=== PATIENT | male | born 1970 | race African-American/Black ===

== ENCOUNTER → 2017-05-30 18:13 | Outpatient (CLI) | payer OTHER, SELFPAY | PROVIDERS: Family Provider Family Medicine; PCP Family Medicine; Visit Provider Physician Assistant | DX: J02.9 Acute pharyngitis, unspecified (principal) | CPT/HCPCS: 87081 ==

== ENCOUNTER 2017-10-29 20:04 | Emergency (ER) | payer OTHER, SELFPAY ==
[2017-10-29 20:05] VITALS: BP 157/88; PULSE 104; RESP 18; TEMP 38.7; O2SAT 94; BMI 30.5
[2017-10-29 20:20] VITALS: TEMP 38.6
[2017-10-29 20:58] VITALS: O2SAT 100
[2017-10-29] MEDS: Acetaminophen 500 MG Tablet 1000 MG PO (21:12)
[2017-10-29] MEDS: 0.9% Normal Saline 1,000 ML 150 ML IV (21:15)
[2017-10-29 21:16] VITALS: O2SAT 98
[2017-10-29 21:43] LABS: Lactic Acid 1.1 mmol/L (0.4-2.0)
[2017-10-29 21:53] LABS: Anion Gap 6 (5-15); BUN 15 mg/dL (7-18); BUN/Creat Ratio 12.7 RATIO (10-20); Calcium,Total 9.5 mg/dL (8.5-10.1); Chloride 102 mmol/L (98-107); Creatinine, Serum 1.18 mg/dL (0.70-1.30); EST Glomerular Filtration Rate 70 mL/min (>60); Est Glom Filt Rate - Afr Amer 85 mL/min (>60); Estimated Creatinine Clearance 84.94 ml/min; Glucose 81 mg/dL (74-106); Hematocrit 35.8 % (40-54); Potassium 3.3 mmol/L (3.5-5.1); Sodium Level 137 mmol/L (136-145); White Blood Count 8.7 K/mm3 (4.4-11.0)
[2017-10-29 21:54] LABS: Absolute Lymphocyte Count 0.97 X10^3/ul (0.83-4.51); Absolute Neutrophil Count 6.6 X10^3/uL (2.0-7.7); Basophil# 0.03 X10^3/uL; Basophil% 0.3 % (0-1); Eosinophil# 0.32 X10^3/uL; Eosinophils% 3.7 % (0-5); Lymphocyte # 0.97 X10^3/ul (4.0); Lymphocyte % 11.2 % (19-41); Mean Corp Hgb Conc 33.5 g/gl (32-36); Mean Corpuscular Volume 89.5 fL (80-94); Mean Platelet Vol. 9.7 fl (6.2-12.0); Monocyte# 0.76 X10^3/uL; Monocyte% 8.8 % (0-10); Neutrophil # 6.57 X10^3/uL (2.7-7.7); Neutrophil % 75.8 % (47-70); Platelet Count 423 K/mm3 (150-450); RBC Distribution Width CV 11.8 % (11.6-14.6); RBC Distribution Width SD 37.6 fl (35.1-43.9)
[2017-10-29 21:55] LABS: POSITIVE COUNT NO; POSITIVE DIFFERENTIAL NO; POSITIVE MORPHOLOGY NO
[2017-10-29 22:56] VITALS: BP 166/96; PULSE 95; RESP 16; TEMP 37.2; O2SAT 91
--- NOTE | 2017-10-29 23:45 | ED.VISSUMM ---
- ER Visit Summary Date of Service: 10/29/17 Chief Complaint: Body aches, fever History of Present Illness: The patient is a 47 M with generalized body aches and fever today. He is 3 weeks postop from a vasectomy performed by Dr. Nixon. Patient has been complaining of scrotal pain and swelling, now worse than the left. He had urinalysis done at urgent care that showed signs of possible dehydration but no sign of infection. Physical Examination: Blood pressure 157/88, temperature 101.4, heart rate 104, respiratory rate 18, pulse ox 94% on room air. Head neck examination unremarkable. Heart is regular rate and rhythm. Lung sounds are clear. Abdomen is soft and nontender. examination reveals right scrotal fullness. Right testicle is nontender. No overlying skin changes. He does have mild left testicular tenderness. There is less swelling on the left. No overlying skin changes. Test Results: CBC was normal white count with hemoglobin is 12.0. Chemistry studies significant only for potassium of 3.3. Lactate normal. Testicular ultrasound shows no torsion. There is mild increased vascularity of the epididymis bilaterally. There is a large right-sided hydrocele. 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 Emergency Department Course and Treatment: Patient was given Tylenol and IV fluids. Fever is improved. I spoke with Dr. Nixon and he asked that the patient be treated with a course of Keflex. First doses given here. Treatment Plan: [] Disposition: Discharge Impression: Postop fever This note was generated with [employer] dictation software. It may contain incorrect words, spelling, and punctuation that were not noted in review of the chart prior to signing ED Disposition - Plan for ED Patient: Disposition: Home or Assisted Living Chief Complaint: General Illness Instructions: ED Fever Unconf Cause, ED Post Op Pain Prescriptions: Cephalexin [Keflex] 500 mg PO Q6 #40 capsule Referrals: Fran Nixon MD [STAFF PHYSICIAN] - 1 Week
[2017-10-29] MEDS: Cephalexin 250 MG Capsule 500 MG PO (23:54)
[2017-10-29 23:59] VITALS: BP 152/85; PULSE 85; RESP 16; O2SAT 96
== END 2017-10-30 | disposition home or self-care (01) ==
PROVIDERS: Emergency Provider Emergency Medicine; Family Provider Family Medicine; PCP Family Medicine
DX: R50.82 Postprocedural fever (principal); N43.3 Hydrocele, unspecified; Z98.52 Vasectomy status; J45.909 Unspecified asthma, uncomplicated; E11.9 Type 2 diabetes mellitus without complications; Z79.84 Long term (current) use of oral hypoglycemic drugs
CPT/HCPCS: 76870; 80048; 83605; 85025; 87040; 93976; 94760; 96360; 96361; 99285; J7030; J7040; A4216

== ENCOUNTER → 2018-07-01 13:38 | Outpatient (CLI) | payer OTHER, SELFPAY ==
--- NOTE | 2018-07-01 13:45 | STEWCON_ITS ---
Reason For Study: Syncope Stress Results Protocol: Jresey Protocol Maximum Predicted HR: 172 bpm Target HR: 146 bpm % Maximum Predicted HR: 95 % DurationHeart Rate Stage (mm:ss) (bpm) BP Comment Baseline 60 114/86No Chest Pain; 0.4 ML Definity Given [place] Protocol Stage I 3:00 109 136/80No Chest Pain [place] Protocol Stage II 3:00 120 138/84No Chest Pain [place] Protocol Stage III 3:00 142 146/80No Chest Pain [place] Protocol Stage IV 2:00 164 / No Chest Pain; Mild to Moderate Dyspnea Recovery 80 128/80No Chest Pain Stress Duration: 11:00 mm:ss Maximum Stress HR: 164 bpm METS: 13 Baseline Echocardiogram Findings Stress Echo Wall motion Data Resting WM Intermediate WM Stress WM Resting Wall Motion Wall Motion Stress No regional wall motion No regional wall motion abnormalities noted. abnormalities noted. Ejection Fraction 55 %. Ejection Fraction 65 %. Interpretation Summary Exercise stress echo with and without definitive. Stress protocol: Resting EKG demonstrates sinus bradycardia with a rate of 56 bpm normal intervals are noted resting blood pressure 114/86 mmHg. The patient exercised according to regular Jersey protocol for total duration of 11 minutes completing 2 minutes into stage IV of the Jersey protocol. The maximum heart rate attained was 176 bpm which was 102% of maximum predicted heart rate the maximum workload was 13.4 metabolic equivalents. At rest there were no ST or T wave changes noted suggest ischemia peak exercise upsloping ST changes only were noted with no meet the criteria for ischemia. No clinical angina was noted. The resting blood pressure 114/86 with a peak blood pressure of 194/90 mmHg. No clinical angina was noted. Stress echocardiographic images. The resting echocardiographic images were performed with Definity which demonstrated an ejection fraction of approximately 55%. The stress echocardiographic images were also performed with Definity it demonstrated reduction in left ventricular cavity size with peaking of ejection fraction of 65% no wall motion abnormalities were noted. Conclusion: Normal exercise stress echo with and without definity at a high workload. Ordering Physician: Diego Kruger Referring Physician: Geovanny Linn Performed By: Lindsay Salazar, DAYANA, RVT
== END ==
PROVIDERS: Family Provider Family Medicine; PCP Family Medicine; Referring Provider Nurse Practitioner Family
DX: R42 Dizziness and giddiness (principal); R55 Syncope and collapse
CPT/HCPCS: 93017; 93350; Q9957; A4216; C8928

== ENCOUNTER 2020-09-28 08:16 | Day surgery (SDC) | payer OTHER, SELFPAY ==
[2020-09-02 14:03] VITALS: BMI 30.5
[2020-09-28] VITALS (7 sets, daily range): BP systolic 120–157; BP diastolic 77–96; PULSE 66–86; RESP 14–20; TEMP 19.4–36.2; O2SAT 85–100; BMI 28.0
[2020-09-28] MEDS: Lactated Ringers 1,000 ML 100 ML IV (08:25)
--- NOTE | 2020-09-28 09:20 | PCM.HP.BLA ---
History and Physical Date of Admission: 09/28/20 Intake Vital Signs 09/02/20 14:01 09/02/20 14:03 Height 6 ft Weight: 207 lb BMI 28.0 30.5 BP 170/104 H Blood Pressure Location Rt brachial Position Sitting Respiration 16 Pulse 77 Pulse Source Monitor Pulse Oximetry (%) 99 Oxygen Delivery Method room air Intake Visit Reasons: CSCOPE, EGD Chief Complaint: CSCOPE/ GERD/ R Inguinal hernia Pediatric Care Coordinator Required: No Accompanied by: Significant Other Is patient in pain?: No Allergies cephalexin [From Keflex] Allergy (Unknown, Verified 09/02/20 14:02) unknown Fish Containing Products Allergy (Verified 09/02/20 14:02) Hives ibuprofen Adverse Reaction (Verified 09/02/20 14:02) Upset Stomach Medications esomeprazole magnesium 20 mg PO DAILY 01/01/17 [History Confirmed 09/02/20] metformin 850 mg PO BIDCM 01/01/17 [History Confirmed 09/02/20] carboxymethylcellulose sodium 0.5 % eye drops in a dropperette 1 drp OPHTHALMIC 4-8XD PRN 05/30/17 [History Confirmed 09/02/20] pgygbrbr-uowucdip-zbvdr acid 400 mcg-vit K 20 mcg-lycop 300 mcg tablet tab PO 05/30/17 [History Confirmed 09/02/20] latanoprost 0.005 % eye drops 1 drp OPHTHALMIC (EYE) QPM ml 09/02/20 [History Confirmed 09/02/20] PFSH Medical History (Updated 09/02/20 @ 14:[address] Gurwinder Lauren MD) Asthma Back pain Diabetes GERD (gastroesophageal reflux disease) Knee pain Right groin hernia Surgical History History of knee surgery Family History (Updated 09/02/20 @ 14:00 by Jaki Mcelroy) Sister Breast cancer Mother Diabetes Brother Diabetes Social History (Updated 09/02/20 @ 14:01 by Jaki Mcelroy) Smoking Status: Never smoker second hand exposure: No alcohol intake: current substance use type: does not use caffeine: Yes HPI HPI HPI: RACHELL ESTRADA, is a 50 M who presents to the office today for multiple issues. The patient has been experiencing pain in his right groin and bulging. The patient also reports that he is due for screening colonoscopy and he has long-term GERD. Patient chose his GERD with PPI and he is never had an EGD. The patient is never had a colonoscopy. He has no family history of colon cancer. Patient reports he has been feeling bulging as regard especially with exertion. It is painful and running. He has no nausea or vomiting. No complaints on the left side. ROS General General: No weight change, appetite, fatigue, colon cancer, breast cancer or weakness HEENT HEENT: No difficulty swallowing, eye injury, eye surgery, swollen glands or hoarseness Endo Endocrine: Yes diabetes mellitus; No thyroid disease, thyroid cancer, Hair loss, heat intolerance or cold intolerance Skin Skin: No rash or changing moles Musc Musculoskeletal: Yes back problems; No arthritis, rheumatoid arthritis, gout or joint pain Cardio Cardiovascular: No murmur, pacemaker, heart disease, atrial fibrillation, high blood pressure, heart attack, heart stent, palpitations, shortness of breat with exertion or chest pain Psych Psychiatric: No depression, anxiety or hearing voices Resp Respiratory: No shortness of breath, Yes sleep apnea, No cough, No COPD, No asthma, No emphysema and No wheezing Gastro Gastrointestinal: No abdominal pain, No nausea or vomiting, No diarrhea, No constipation, No blood in stool, Yes acid reflux, No hemorrhoids, No ulcers, No gallbladder problem and No black,tarry stools Additional Details: Right groin pain Simon Hematologic: No blood thinners, No blood disorders, No bleeding, No anemia and No blood clots Neuro Neurologic: No weakness Exam Const General: cooperative Orientation: alert and oriented x3 HENMT Head: normal to inspection Neck Neck: normal visual inspection and full ROM Chest Chest palpation & inspection: normal inspection of the chest Resp Effort & Inspection: normal respiratory effort Auscultation: clear to auscultation bilaterally Cardio Rate: regular rate Rhythm: regular rhythm GI Inspection: non-distended Palpation: soft, hernia direct inguinal on the right and nontender Skin General: no rashes or lesions noted Neuro General: patient alert and patient oriented x3 Extrem General: full ROM Psych Appearance: grossly normal Mental Status: mental status grossly normal Assessment and Plan Assessment and Plan (1) Right groin hernia: Status: Acute (2) GERD (gastroesophageal reflux disease): Status: Acute Qualifiers: Esophagitis presence: esophagitis presence not specified Qualified Code(s): K21.9 - Gastro-esophageal reflux disease without esophagitis (3) Screen for colon cancer: Status: Acute Orders: Orders: EGD Today K21.9 Colonoscopy Today Z12.11 Plan - Dr. Gurwinder Lauren MD: The patient has a right groin hernia and I discussed hernia repair with him. I discussed open versus robotic assisted laparoscopic approach. I discussed the risks of the procedure including not limited to bleeding, infection, chronic groin pain, injury to the organs in the area such as the bladder, ureter, bowel, great vessels. The patient understands the risks and would like to proceed with robotic assisted laparoscopic right inguinal hernia repair with mesh. I also discussed repairing the contralateral side if a hernia is present he would like this repaired if it is present. I also discussed EGD and colonoscopy with the patient. The patient has long-term GERD and this is treated with PPI and he is never had a surveillance EGD to check for Collins's esophagus. The patient also require screening colonoscopy as he has never had one he is age 50 I explained endoscopy in detail to the patient. I explained the risks including but not limited to stroke or heart attack with anesthesia, perforation of the GI tract, bleeding, infection. I explained that any of these could necessitate further emergency surgery. The patient understands and all questions were answered sufficiently. The patient wishes to proceed with procedure. Gurwinder Lauren MD Pager: [facility] [address] [place] [address], [address] [place] [address] Office: . I have re-examined the patient. There are no clinical changes since date of exam.
--- NOTE | 2020-09-28 10:10 | OP.EGD_ITS ---
Patient Name: Piero Tello Procedure Date: 09/28/2020 9:30 AM Date of : 1970 Age: 50 Procedure: Upper GI endoscopy Indications: Heartburn, Suspected gastro-esophageal reflux disease Providers: Gurwinder Lauren MD Referring MD: Temo Gabriel Medicines: Monitored Anesthesia Care Patient Profile: This is a 50 year old male. Refer to note in patient chart for documentation of history and physical. Complications: No immediate complications. Procedure: Pre-Anesthesia Assessment: - Prior to the procedure, a History and Physical was performed, and patient medications and allergies were reviewed. The patient's tolerance of previous anesthesia was also reviewed. The risks and benefits of the procedure and the sedation options and risks were discussed with the patient. All questions were answered, and informed consent was obtained. Prior Anticoagulants: The patient has taken no previous anticoagulant or antiplatelet agents. After reviewing the risks and benefits, the patient was deemed in satisfactory condition to undergo the procedure. After obtaining informed consent, the endoscope was passed under direct vision. Throughout the procedure, the patient's blood pressure, pulse, and oxygen saturations were monitored continuously. The gastroscope was introduced through the mouth, and advanced to the second part of duodenum. The upper GI endoscopy was accomplished without difficulty. The patient tolerated the procedure well. Scope In: 9:36:40 AM Scope Out: 9:39:45 AM Total Procedure Duration Time 0 hours 3 minutes 5 seconds Findings: The esophagus was normal. The stomach was normal. The examined duodenum was normal. Impression: - Normal esophagus. - Normal stomach. - Normal examined duodenum. - No specimens collected. Recommendation: - Discharge patient to home. - Resume previous diet. - Continue present medications. Procedure Code(s): --- Professional --- 40055, Esophagogastroduodenoscopy, flexible, transoral; diagnostic, including collection of specimen(s) by brushing or washing, when performed (separate procedure) Diagnosis Code(s): --- Professional --- R12, Heartburn CPT copyright 2017 [employer]. All rights reserved. The codes documented in this report are preliminary and upon medical biller/coder review may be revised to meet current compliance requirements. Gurwinder Lauren MD 09/28/2020 10:10:27 AM This report has been signed electronically. Number of Addenda: 0 Note Initiated On: 09/28/2020 9:30 AM
--- NOTE | 2020-09-28 10:11 | OP.CCLET_ITS ---
09/28/2020 Temo Gabriel [address] [place] [address] Re : Upper GI endoscopy procedure for Piero Tello Dear Dr. Gabriel This procedure was performed on Monday, September 28, 2020. My impressions and recommendations are as follows: Impressions : - Normal esophagus. - Normal stomach. - Normal examined duodenum. - No specimens collected. Recommendations : - Discharge patient to home. - Resume previous diet. - Continue present medications. My findings are described in the full procedure note, which is enclosed. If I can be of further assistance, please feel free to contact me at Doctor phone number(s): , Work: . Sincerely, Gurwinder Lauren MD 09/28/2020 10:10:27 AM This report has been signed electronically.
--- NOTE | 2020-09-28 10:15 | OP.COLON_ITS ---
Patient Name: Piero Tello Procedure Date: 09/28/2020 9:40 AM Date of : 1970 Age: 50 Procedure: Colonoscopy Indications: Screening for colorectal malignant neoplasm Providers: Gurwinder Lauren MD Referring MD: Temo Gabriel Medicines: Monitored Anesthesia Care Patient Profile: This is a 50 year old male. Refer to note in patient chart for documentation of history and physical. Last Colonoscopy: none. The patient's first colonoscopy is today. Complications: No immediate complications. Procedure: Pre-Anesthesia Assessment: - Prior to the procedure, a History and Physical was performed, and patient medications and allergies were reviewed. The patient's tolerance of previous anesthesia was also reviewed. The risks and benefits of the procedure and the sedation options and risks were discussed with the patient. All questions were answered, and informed consent was obtained. Prior Anticoagulants: The patient has taken no previous anticoagulant or antiplatelet agents. After reviewing the risks and benefits, the patient was deemed in satisfactory condition to undergo the procedure. After I obtained informed consent, the scope was passed under direct vision. Throughout the procedure, the patient's blood pressure, pulse, and oxygen saturations were monitored continuously. The Colonoscope was introduced through the anus and advanced to the cecum, identified by appendiceal orifice and ileocecal valve. The colonoscopy was performed without difficulty. The patient tolerated the procedure well. The quality of the bowel preparation was good. Scope In: 9:42:25 AM Scope Withdrawal Time 0 hours 6 minutes 25 seconds Scope Out: 9:52:27 AM Total Procedure Duration Time 0 hours 10 minutes 2 seconds Findings: The entire examined colon appeared normal on direct and retroflexion views. Impression: - The entire examined colon is normal on direct and retroflexion views. - No specimens collected. Recommendation: - Discharge patient to home. - Resume previous diet. - Continue present medications. - Repeat colonoscopy in 10 years for screening purposes. Procedure Code(s): --- Professional --- 68653, Colonoscopy, flexible; diagnostic, including collection of specimen(s) by brushing or washing, when performed (separate procedure) Diagnosis Code(s): --- Professional --- Z12.11, Encounter for screening for malignant neoplasm of colon CPT copyright 2017 [employer]. All rights reserved. The codes documented in this report are preliminary and upon dogman/woman review may be revised to meet current compliance requirements. Gurwinder Lauren MD 09/28/2020 10:14:49 AM This report has been signed electronically. Number of Addenda: 0 Note Initiated On: 09/28/2020 9:40 AM
--- NOTE | 2020-09-28 10:16 | OP.CCLET_ITS ---
09/28/2020 Temo Gabriel [address] [place] [address] Re : Colonoscopy procedure for Piero Tello Dear Dr. Gabriel This procedure was performed on Monday, September 28, 2020. My impressions and recommendations are as follows: Impressions : - The entire examined colon is normal on direct and retroflexion views. - No specimens collected. Recommendations : - Discharge patient to home. - Resume previous diet. - Continue present medications. - Repeat colonoscopy in 10 years for screening purposes. My findings are described in the full procedure note, which is enclosed. If I can be of further assistance, please feel free to contact me at Doctor phone number(s): , Work: . Sincerely, Gurwinder Lauren MD 09/28/2020 10:14:49 AM This report has been signed electronically.
[2020-09-28 10:21] LABS: Bedside Glucose 171 mg/dL (70-110)
== END 2020-09-28 10:53 ==
LOC: EN 08:18 → AC 08:18
PROVIDERS: PCP Family Medicine; Referring Provider Family Medicine; Visit Provider Surgery
PROC: 0DJD8ZZ Inspection of Lower Intestinal Tract, Via Natural or Artificial Opening Endoscopic (ICD-10-PCS; CPT 45378; principal; 2020-09-28 09:25)
DX: Z12.11 Encounter for screening for malignant neoplasm of colon (principal); K21.9 Gastro-esophageal reflux disease without esophagitis; K40.90 Unilateral inguinal hernia, without obstruction or gangrene, not specified as recurrent; J45.909 Unspecified asthma, uncomplicated; E11.9 Type 2 diabetes mellitus without complications; G47.30 Sleep apnea, unspecified; Z79.84 Long term (current) use of oral hypoglycemic drugs; Z79.899 Other long term (current) drug therapy
CPT/HCPCS: 43235; 45378; 82962; J7120; J2405

== ENCOUNTER 2020-10-28 05:51 | Day surgery (SDC) | payer OTHER, SELFPAY ==
[2020-09-02 14:03] VITALS: BMI 30.5
[2020-09-28 08:48] VITALS: BMI 28.0
--- NOTE | 2020-10-26 16:12 | EKG12_ITS ---
Test Reason : PRE OP Blood Pressure : / mmHG Vent. Rate : 063 BPM Atrial Rate : 063 BPM P-R Int : 130 ms QRS Dur : 088 ms QT Int : 444 ms P-R-T Axes : -04 -23 026 degrees QTc Int : 454 ms Normal sinus rhythm Nonspecific T wave abnormality Confirmed by KAYCEE JIMENEZ, KARINE ([id number]), head of mobile JASMINA BERNAL ([id number]) on 10/27/2020 10:45:57 AM Referred By: Gurwinder Lauren Confirmed By:KARINE BENOIT MD
[2020-10-26 17:04] LABS: Hematocrit 40.9 % (40-54); Hemoglobin 13.2 g/dL (13.0-16.5); Mean Corp Hgb Conc 32.3 g/dL (32-36); Mean Corpuscular Hgb 30.3 pg (27.0-32.0); Mean Corpuscular Volume 93.8 fL (80-94); Mean Platelet Vol. 10.1 fl (6.2-12.0); Platelet Count 275 K/mm3 (150-450); RBC Distribution Width CV 12.5 % (11.6-14.6); RBC Distribution Width SD 43.3 fl (35.1-43.9); Red Blood Count 4.36 M/mm3 (4.6-6.2); White Blood Count 4.3 K/mm3 (4.4-11.0)
[2020-10-26 17:40] LABS: Hemoglobin A1c 7.1 % (3.8-5.6)
[2020-10-26 17:46] LABS: Anion Gap 5 (5-15); BUN 19 mg/dL (7-18); BUN/Creat Ratio 17.6 RATIO (10-20); Calcium,Total 9.4 mg/dL (8.5-10.1); Chloride 104 mmol/L (98-107); Creatinine, Serum 1.08 mg/dL (0.70-1.30); EST Glomerular Filtration Rate 77 mL/min (>60); Est Glom Filt Rate - Afr Amer 93 mL/min (>60); Glucose 212 mg/dL (74-106); Potassium 3.8 mmol/L (3.5-5.1); Sodium Level 139 mmol/L (136-145)
[2020-10-28] VITALS (9 sets, daily range): BP systolic 116–147; BP diastolic 67–86; PULSE 55–82; RESP 16–20; TEMP 36.2–37.3; O2SAT 92–100; BMI 28.5
--- NOTE | 2020-10-28 06:43 | HP.PCM_ITS ---
History and Physical Date of Admission: 10/28/20 HPI HPI: RACHELL ESTRADA, is a 50 M who presents to the office today for multiple issues. The patient has been experiencing pain in his right groin and bulging. The patient also reports that he is due for screening colonoscopy and he has long-term GERD. Patient chose his GERD with PPI and he is never had an EGD. The patient is never had a colonoscopy. He has no family history of colon cancer. Patient reports he has been feeling bulging as regard especially with exertion. It is painful and running. He has no nausea or vomiting. No complaints on the left side. ROS General General: No weight change, appetite, fatigue, colon cancer, breast cancer or weakness HEENT HEENT: No difficulty swallowing, eye injury, eye surgery, swollen glands or hoarseness Endo Endocrine: Yes diabetes mellitus; No thyroid disease, thyroid cancer, Hair loss, heat intolerance or cold intolerance Skin Skin: No rash or changing moles Musc Musculoskeletal: Yes back problems; No arthritis, rheumatoid arthritis, gout or joint pain Cardio Cardiovascular: No murmur, pacemaker, heart disease, atrial fibrillation, high blood pressure, heart attack, heart stent, palpitations, shortness of breat with exertion or chest pain Psych Psychiatric: No depression, anxiety or hearing voices Resp Respiratory: No shortness of breath, Yes sleep apnea, No cough, No COPD, No asthma, No emphysema and No wheezing Gastro Gastrointestinal: No abdominal pain, No nausea or vomiting, No diarrhea, No constipation, No blood in stool, Yes acid reflux, No hemorrhoids, No ulcers, No gallbladder problem and No black,tarry stools Additional Details: Right groin pain Simon Hematologic: No blood thinners, No blood disorders, No bleeding, No anemia and No blood clots Neuro Neurologic: No weakness Exam Const General: cooperative Orientation: alert and oriented x3 HENMT Head: normal to inspection Neck Neck: normal visual inspection and full ROM Chest Chest palpation & inspection: normal inspection of the chest Resp Effort & Inspection: normal respiratory effort Auscultation: clear to auscultation bilaterally Cardio Rate: regular rate Rhythm: regular rhythm GI Inspection: non-distended Palpation: soft, hernia direct inguinal on the right and nontender Skin General: no rashes or lesions noted Neuro General: patient alert and patient oriented x3 Extrem General: full ROM Psych Appearance: grossly normal Mental Status: mental status grossly normal Assessment and Plan Assessment and Plan (1) Right groin hernia: Status: Acute (2) GERD (gastroesophageal reflux disease): Status: Acute Qualifiers: Esophagitis presence: esophagitis presence not specified Qualified Code(s): K21.9 - Gastro-esophageal reflux disease without esophagitis (3) Screen for colon cancer: Status: Acute Orders: Orders: EGD Today K21.9 Colonoscopy Today Z12.11 Plan - Dr. Gurwinder Lauren MD: The patient has a right groin hernia and I discussed hernia repair with him. I discussed open versus robotic assisted laparoscopic approach. I discussed the risks of the procedure including not limited to bleeding, infection, chronic groin pain, injury to the organs in the area such as the bladder, ureter, bowel, great vessels. The patient understands the risks and would like to proceed with robotic assisted laparoscopic right inguinal hernia repair with mesh. I also discussed repairing the contralateral side if a hernia is present he would like this repaired if it is present. Gurwinder Lauren MD Pager: [facility] [address] [place] [address] [place] [address] Office: I have seen and reexamined the patient and there are no new changes.
[2020-10-28] MEDS: Lactated Ringers 1,000 ML 100 ML IV (06:45)
[2020-10-28 07:16] LABS: Bedside Glucose 307 mg/dL (70-110)
--- NOTE | 2020-10-28 07:30 | LIP_PTH ---
PATIENT: RACHELL ESTRADA [place] [facility] [place][id number] AGE/SX: 50/M ROOM: RE10/28/[address]: Dr. Gurwinder Lauren MD : 1970 BED: DIS: 10/28/2020 SPEC #: [id number] RECD: 10/28/20 13:40 STATUS: RASHI REBasil #: [id number] DELFINA: 10/28/20 07:[address]: Gurwinder aLuren DEPT: SURGICAL PATHOLOGY RECD BY: Sandro Cornell ENTERED: 10/29/20 08:28 SP TYPE: LIPOMA OTHR DR: Dr. Temo Gabriel MD Tissues: LIPOMA OF CORD Procedures: Surgery Specimen Level III HEADER OPERATION: Robotic assisted laparoscopic right inguinal hernia with mesh PRE-OP DIAGNOSIS: Right inguinal hernia TISSUE SUBMITTED: Cord lipoma MICROSCOPIC DIAGNOSIS Cord lipoma, excision: Mature adipose tissue consistent with cord lipoma. AM:maribeth 11/01/2020 MICROSCOPIC DESCRIPTION Slides are reviewed. GROSS DESCRIPTION Received in fixative is one container labeled with the patient's name and designated cord lipoma. The specimen consists of a lobulated fragment of liz-yellow fatty tissue measuring 6.5 x 6 x 1.8 cm. Serial sections reveal homogenous yellow cut surfaces without cyst formation, necrosis or hemorrhage. Director Patient sections are submitted in one cassette. / AM:maribeth 10/29/20 TC:1 CPT: 34142
[2020-10-28] MEDS: Bupivacaine Mpf 0.5% 30 ML VIAL (08:39)
[2020-10-28 09:11] LABS: Bedside Glucose 290 mg/dL (70-110)
[2020-10-28] MEDS: Insulin Lispro 100 UNIT/ML INSULN.PEN SC (09:20)
--- NOTE | 2020-10-28 09:22 | OP.PCM_ITS ---
Problems Associated Problem List Diagnoses (1) Right groin hernia: Report of Operation Date of Procedure: 10/28/20 Pre-Operative Diagnosis: Right indirect inguinal hernia Post-Operative Diagnosis: Same Surgery/Procedure Performed:: Robotic assisted laparoscopic right inguinal hernia repair with mesh Specimen's removed: Lipoma of right cord Description of Procedure: Patient was brought back to the operating room and general anesthesia was induced. The abdomen was prepped and draped in the usual sterile fashion. An incision was made superior to the midline and deepened the fascia which was elevated and Veress needle was placed into the abdomen and a drop test was performed was normal. The abdomen was insufflated to 15 mmHg. The needle was removed and a port was placed through this incision. Camera was placed through the port and the abdomen was inspected and there were no injuries from entry. Patient was placed in Trendelenburg position and the inguinal regions were inspected. The patient had a right inguinal hernia only. Next under direct visualization a right lower quadrant and left lower quadrant 8 mm port were placed. The robot was then docked. Using electrocautery scissors a flap was created in the peritoneum on the right lower quadrant. This was deepened to the hernia sac which was reduced after lysing adhesions. The patie nt also had a large lipoma which was dissected free from the cord. The mesh was then placed into the right lower quadrant and unfolded completely covering the hernia defect. The peritoneum was reapproximated using a running 3-0V lock suture. The peritoneum completely cover the mesh. The robot was undocked next the camera was placed into a different port and through the midline port a bag was placed and the lipoma was placed into a bag and then removed. An 0 Vicryl suture was used to close the midline fascia. The skin incisions were then injected with local anesthetic and closed with interrupted 4-0 Monocryl suture and Steri-Strips and bandages. Scrotum was checked to the end the case and contain both testicles. Patient was awoken and taken to PACU in stable condition. Grafts/Implants Used: ProGrip mesh in the right inguinal region Admit VTE Documentation VTE Mechan Device Prophylaxis: SCD's
--- NOTE | 2020-10-28 09:25 | EX.PCM.DISCH ---
Discharge Instructions Procedure Hernia Diet Discharge Diet: Light diet - advance as tolerated Activity Discharge Activity: May Not Drive (for 2-3 days or while taking narcotic pain meds.) and May Shower (with the bandage in place 1-2 days after surgery.) Lifting Restrictions: 20 pounds for 4 weeks. Additional Activity Instructions:: Climbing stairs is fine, walking is encouraged. Sitting in bed may be uncomfortable. Sitting up using your lateral muscles (sitting up sideways) is usually more comfortable. Do not drive, work heavy equipment of sign legal documents for 24 hours. If your hernia repair was an ingunial repair, you may have scrotal swelling, an ice pack and/or athletic support can provide more comfort. Pain medications may cause nausea, you should typically eat light foods as you take your pain medications. Pain medications may also cause constipation. If you have difficulty with this, discuss with your doctor. Dressing / Incision Call your doctor if your incision/area has: Continuous Slow Oozing, Sudden Increased Bleeding, Increased Pain/ Swelling, Increased Redness and Foul Smelling Discharge Call your doctor if you observe: Fever of 101 or Higher Suture Line Care: Avoid Pulling/Pushing and Avoid Pinching/Bending Remove Dressing in: 2 days Cleanse incision/area with: Soap & Water Follow Up Care Please Follow Up With: Gurwinder Lauren MD When: Please call to schedule 2 week follow up appointment. [phone] Test Results: Test results from this visit will be discussed in further detail at your follow-up appointment, if applicable. Discharge Plan Admission Attending Provider: Gurwinder Lauren Primary Care Provider: Temo Gabriel Discharge Orders/Prescriptions Prescriptions: New oxycodone-acetaminophen [Percocet] 5-325 mg tablet 1 tab PO Q4H PRN (Reason: pain) 5 Days Qty: 10 RF: 0 No Action carboxymethylcellulose sodium [Lubricant Eye Drops] 0.5 % dropperette 1 drp OPHTHALMIC BID RF: 0 latanoprost 0.005 % drops 1 drp ophthalmic (eye) QPM RF: 0 metformin 850 MG tablet 850 mg PO BIDCM RF: 0 esomeprazole magnesium 20 MG capsule 20 mg PO DAILY RF: 0 lisinopril 10 mg tablet 10 mg PO DAILY RF: 0 Referrals / Follow Up: Temo Gabriel MD [Primary Care Provider] - Disposition Disposition (needs filled in before D/C Order can be placed): Home, Self Care
[2020-10-28 11:41] LABS: Bedside Glucose 283 mg/dL (70-110)
== END 2020-10-28 11:50 | disposition home or self-care (01) ==
LOC: SDC 05:53 → AC 05:53
PROVIDERS: Anesthesiology; PCP Family Medicine; Referring Provider Surgery; Visit Provider Surgery
PROC: (CPT 49650; principal; 2020-10-28 07:10)
DX: K40.90 Unilateral inguinal hernia, without obstruction or gangrene, not specified as recurrent (principal); I10 Essential (primary) hypertension; E11.9 Type 2 diabetes mellitus without complications; K21.9 Gastro-esophageal reflux disease without esophagitis; G47.30 Sleep apnea, unspecified; J45.909 Unspecified asthma, uncomplicated; Z86.16 Personal history of COVID-19; Z79.84 Long term (current) use of oral hypoglycemic drugs; Z79.899 Other long term (current) drug therapy
CPT/HCPCS: 00840; 49650; S2900; 36415; 80048; 82962; 83036; 85027; 88304; 93005; J7120; J2405